=== PATIENT | female | born 1985 | race Caucasian/White ===

== ENCOUNTER 2018-04-24 04:58 | Day surgery (SDC) | payer BC, OTHER ==
[2018-04-23 17:38] VITALS: BMI 24.0
[2018-04-24] MEDS ORDERED: IBUPROFEN 800 MG/8 ML IJ IVPB PRN (14:10)
[2018-04-24] MEDS ORDERED: ACETAMINOPHEN 325 MG TABLET (FP) PO PRN (14:10)
--- NOTE | 2018-04-24 14:10 | HP ---
History & Physical Update - History History: No Change - Physical Physical: No Change - Assessment Assessment: No Change - Plan Plan: No Change (Agree with H&P from 04/23/18. Plan for hysteroscopic polypectomy/myomectomy for AUB and fibroids/polyps.)
[2018-04-24] MEDS ORDERED: LACTATED RINGERS SOLUTION 1,000 ML IV SCH ×2 (14:15→15:45)
[2018-04-24] MEDS ORDERED: MIDAZOLAM HCL 2 MG/2 ML SINGLE DOSE VIAL ONE (14:28)
[2018-04-24] MEDS ORDERED: PROPOFOL 20 ML ONE (14:28)
[2018-04-24] MEDS ORDERED: DEXAMETHASONE SOD PHOSPHATE 4 MG/1 ML VIAL ONE (15:05)
[2018-04-24] MEDS ORDERED: KETOROLAC TROMETHAMINE 30 MG/1 ML VIAL ONE (15:05)
--- NOTE | 2018-04-24 15:27 | OP ---
Operative Note - Note: Operative Date: 04/24/18 Pre-Operative Diagnosis: AUB, endometrial polyps Operation: hysteroscopy, D&C, polypectomy Post-Operative Diagnosis: Same as Pre-op Surgeon: Anna Birmingham Anesthesiologist/[employer] SUPERVISOR: Tressa Talley Anesthesia: General (wtih LMA) Estimated Blood Loss (mls): 5 Operative Report Dictated: Yes
[2018-04-24] MEDS ORDERED: oxyCODONE HCL 5 MG TABLET PO PRN (15:36)
[2018-04-24] MEDS ORDERED: ONDANSETRON 4 MG/2 ML VIAL IVPUSH PRN (15:36)
[2018-04-24] MEDS ORDERED: ACETAMINOPHEN 325 MG TABLET (FP) ONE (16:28)
[2018-04-24 19:56] VITALS: TEMP 98
[2018-04-24 20:02] VITALS: BP 128/63; PULSE 60
--- NOTE | 2018-04-27 20:02 | OP ---
DATE OF OPERATION: 04/24/2018 PREOPERATIVE DIAGNOSIS: Abnormal uterine bleeding and endometrial polyps. POSTOPERATIVE DIAGNOSIS: Abnormal uterine bleeding and endometrial polyps. PROCEDURE: Diagnostic hysteroscopy, dilation and curettage, and polypectomy. SURGEON: Anna Birmingham MD ANESTHESIA: General with LMA by Dr. Talley. ESTIMATED BLOOD LOSS: 5 mL. COMPLICATIONS: None. SPECIMENS REMOVED: Endometrial polyps and endometrial curettings. FINDINGS: Endometrial polyps. COUNTS: Sponge and instrument count correct. DISPOSITION: Stable to PACU. BRIEF HISTORY AND PROCEDURE: The patient is a 32-year-old female who had been seen in the office with complaints of irregular and abnormal uterine bleeding, upon hysterosonogram was found to have endometrial polyps. Patient was counseled on her options and she would like to undergo hysteroscopic resection of these polyps. The patient was admitted to [facility] on April 24, 2018, and consents which had been signed prior were re-confirmed upon admission. The patient was then taken back to the operating room, where she was given general anesthesia with LMA by Dr. Talley and placed in the dorsal lithotomy position. She was prepped and draped in the usual sterile fashion and a hard timeout was performed. The anterior lip of the cervix was grasped with a tenaculum and the cervix was dilated to accommodate a diagnostic hysteroscope, which was advanced to the fundus of the uterus. Bilateral tubal ostia were noted. Multiple endometrial polyps were noted at the fundus of the uterus and along the anterior wall of the uterus. Sharp D&C was completed and, using polyp forceps, the polyps were removed in their entirety and a suction D&C was performed to remove all of the detached tissue. One final pass with the hysteroscope revealed no evidence of uterine perforation and complete resection of the endometrial polyps. All instruments were removed from the vagina. The patient was awoken from anesthesia. Sponge and instrument counts were reported to be correct. The patient tolerated the procedure well, was recovering in stable condition in PACU after the procedure. ANNA BIRMINGHAM DO /[id number]
--- NOTE | 2018-04-28 16:53 | PATH ---
Surgical Pathology Report Patient Name: NICHOLE CORONADO [facility]. Rec. #: [id number] /Age/Gender: 1985 (Age: 32) / F Account: [id number] Location: [facility] SURGICAL Taken: 04/25/2018 Received: 04/25/2018 Reported: 04/28/2018 Physicians: Anna Birmingham M.D. Specimen(s) Received ENDOMETRIAL CURETTINGS X2 Clinical History Abnormal uterine bleeding, endometrial polyps Final Diagnosis ENDOMETRIAL CURETTINGS X 2: FRAGMENTS OF ENDOMETRIAL POLYP. SEPARATE FRAGMENTS OF PROLIFERATIVE ENDOMETRIUM WITH STROMAL BREAKDOWN. SEPARATE FRAGMENTS OF ENDOCERVICAL TISSUE WITH SQUAMOUS METAPLASIA. Electronically Signed Sienna Ash M.D. Gross Description Received in formalin, in 2 separate containers both labeled "endometrial curettings," is a 3.2 x 2.5 x 0.3 cm aggregate of munoz-brown soft tissue fragments. The formalin is filtered and the specimen is entirely submitted in 2 cassettes. /04/25/2018 saudi04/25/2018
== END 2018-04-24 17:30 | disposition home or self-care (01) ==
LOC: JASU-SURG 04:58
PROVIDERS: ATTEND Obstetrics & Gynecology
PROC: 0UJD8ZZ Inspection of Uterus and Cervix, Via Natural or Artificial Opening Endoscopic (ICD-10-PCS; 2018-04-24)
PROC: 0UB97ZX Excision of Uterus, Via Natural or Artificial Opening, Diagnostic (ICD-10-PCS; principal; 2018-04-24 14:30)
PROC: 0UDB7ZX Extraction of Endometrium, Via Natural or Artificial Opening, Diagnostic (ICD-10-PCS; 2018-04-24 14:30)
DX: N93.9 Abnormal uterine and vaginal bleeding, unspecified (principal); N84.0 Polyp of corpus uteri
CPT/HCPCS: 86900; 88305-TC; 94760